=== PATIENT | female | born 1945 | race Hispanic/Latino ===

== ENCOUNTER 2018-04-12 19:06 | Emergency (ER) | payer BC, MEDICARE ==
--- NOTE | 2018-04-12 20:25 | Emergency Department Report ---
ED Extremity Problem HPI - General Chief complaint: Extremity Injury, Lower Stated complaint: RIGHT LEG PAIN Time Seen by Provider: 04/12/18 20:24 Source: patient Mode of arrival: Wheelchair Limitations: Physical Limitation - History of Present Illness Initial comments: Patient accidentally stepped into a shallow hole at the hotel where she is staying earlier this afternoon, injuring right leg and ankle, with pain in the lower leg and ankle area laterally. She scraped the lower aspect of her leg, but there is no protrusion of any bone. She was unable to walk on it afterwards. She has good sensation, and the foot is not cold or numb. She did not strike her head, there was no loss of consciousness, she has no injury elsewhere. Her tetanus is current as of approximately 2 years ago. Past medical history is good general health, with the exception of asthma, and patient is Her, but quit more than 25 years ago. MD Complaint: extremity pain -: Sudden Location: right History of Same: No Severity scale (0 -10): 9 Quality: stabbing, sharp Consistency: constant Improves with: nothing Worsens with: other (movement) Associated Symptoms: denies other symptoms - Related Data Allergies Allergy/AdvReac Type Severity Reaction Status Date / Time adhesive tape Allergy Rash Verified 04/12/18 19:26 ED Review of Systems ROS: Stated complaint: RIGHT LEG PAIN Other details as noted in HPI Comment: All other systems reviewed and negative Constitutional: no symptoms reported Eyes: denies: eye pain, eye discharge, vision change ENT: denies: ear pain, throat pain Respiratory: denies: cough, shortness of breath, wheezing Cardiovascular: denies: chest pain, palpitations Endocrine: no symptoms reported Gastrointestinal: denies: abdominal pain, nausea, diarrhea Musculoskeletal: as per HPI, other (pain in the distal right leg, proximal leg) . denies: back pain, joint swelling, arthralgia Skin: other (contusion distal medial pretibial skin) Neurological: denies: headache, weakness, paresthesias Psychiatric: denies: anxiety, depression Hematological/Lymphatic: denies: easy bleeding, easy bruising ED Past Medical Hx - Past Medical History Previous Medical History?: Yes Hx Hypertension: Yes Hx Asthma: Yes Additional medical history: high cholestrol - Surgical History Past Surgical History?: Yes Hx Cholecystectomy: Yes Hx Appendectomy: Yes Additional Surgical History: right shoulder, left knee, right finger - Social History Smoking Status: Never Smoker Substance Use Type: None ED Physical Exam - General Limitations: Physical Limitation General appearance: in distress (and discomfort from leg injury) - Head Head exam: Present: atraumatic, normocephalic - Eye Eye exam: Present: normal appearance - ENT ENT exam: Present: mucous membranes moist - Neck Neck exam: Present: normal inspection - Respiratory Respiratory exam: Present: normal lung sounds bilaterally. Absent: respiratory distress - Cardiovascular Cardiovascular Exam: Present: regular rate, normal rhythm. Absent: systolic murmur, diastolic murmur, rubs, gallop - GI/Abdominal GI/Abdominal exam: Present: soft, normal bowel sounds - Rectal Rectal exam: Present: deferred - Extremities Exam Extremities exam: Present: tenderness, normal capillary refill, other (edema right lower extremity over the area of maximal tenderness distal third of leg, also moderate tenderness proximal lateral right knee area over proximal fibula) - Expanded Lower Extremity Exam Right Hip exam: Present: normal inspection Upper Leg exam: Present: normal inspection Knee exam: Present: tenderness (lateral right knee) Lower Leg exam: Present: tenderness (distal third right leg), swelling (distal right leg), abrasion (medial aspect distal third of leg on right), ecchymosis ( with contusion medial aspect distal third of right leg). Absent: full ROM, laceration Ankle exam: Absent: tenderness Foot/Toe exam: Present: normal inspection, full ROM (however, limited by pain and right foot). Absent: swelling, abrasion Neuro vascular tendon exam: Present: no vascular compromise. Absent: motor deficit, sensory deficit, tendon deficit, extremity cold to touch, foot drop, peroneal nerve deficit 1 - Moderate edema, medial contusion 3 cm distal third right leg - Back Exam Back exam: Present: normal inspection - Neurological Exam Neurological exam: Present: alert, oriented X3, CN II-XII intact. Absent: motor sensory deficit - Psychiatric Psychiatric exam: Present: normal affect, normal mood ED Course Vital Signs 04/12/18 04/12/18 04/12/18 19:15 19:21 20:29 Temperature 98.0 F 98 F 97.7 F Pulse Rate 76 75 76 Respiratory 18 18 19 Rate Blood Pressure 175/61 175/61 Blood Pressure 176/71 [Right] O2 Sat by Pulse 97 97 98 Oximetry - Reevaluation(s) Reevaluation #1: 04/13/18 00:29 I examined patient and confirmed that she had adequate neurovascular status to right lower extremity after placement of splint, with good movement of toes, good capillary refill, warm toes, normal sensation. She is stable for discharge. ED Medical Decision Making - Radiology Data Radiology results: report reviewed Fracture distal third of right tibia and fibula, moderately displaced, and nondisplaced proximal right fibular fracture. - Medical Decision Making Patient has a 2 bone fracture of the distal tibia and fibula on the right as result of her fall, she also has a nondisplaced fracture of the proximal right fibula, which is neurologically intact, has no signs of peritoneal deficit. Patient is visiting from out of town, was staying in a hotel where accident occurred, and is scheduled to return home to [facility]. She does not have an orthopedist, but she does have a primary care physician, and prefers to receive her care there. She is neurologically stable, will be splinted, instructed in crutch walking, with total nonweightbearing, and to follow-up as early as possible with orthopedist once back home in [place]. Disc copies made of radiographic findings for discharge home with patient. - Differential Diagnosis fracture, contusion, dislocation right leg Critical Care Time: No Critical care attestation.: If time is entered above; I have spent that time in minutes in the direct care of this critically ill patient, excluding procedure time. ED Disposition Clinical Impression: Closed fracture of distal end of right fibula and tibia Qualifiers: Encounter type: initial encounter Qualified Code(s): S82.831A - Other fracture of upper and lower end of right fibula, initial encounter for closed fracture Fracture of proximal end of right fibula Qualifiers: Encounter type: initial encounter Fracture type: closed Fracture morphology: unspecified fracture morphology Qualified Code(s): S82.831A - Other fracture of upper and lower end of right fibula, initial encounter for closed fracture Disposition: DC-01 TO HOME OR SELFCARE Is pt being admited?: No Does the pt Need Aspirin: No Condition: Stable Instructions: Leg Fracture (ED), Crutch Instructions (ED) Additional Instructions: You have broken the bones of your right leg, in 3 places. This is a closed fracture, there is no evidence that the bone protruded, and you are stable for discharge to have your fractures treated at home, by your orthopedist in [place]. We have given you the name of our on-call orthopedist, Dr. Alhaji Michael, in case you have to stay in [facility], and need to receive orthopedic care here. Contact their office first thing in the morning for further care, if he decides to stay in [facility]. We have applied a splint, this is primarily for protection, and to keep the leg from moving. We recommend that she leave it on for the next 2 days, but if he had severe pain, or significant swelling with increased pain, you may remove wrapping, to relieve pressure. Once her feeling better, then rewrap, a little more loosely, but do not attempt to use crutches without the splint in place. At no time should you apply any weight on the leg, which cannot support her weight Elevate her leg as much as possible, as this helps decrease swelling, which was decreased pain from pressure. Have an abrasion and bruise on her right leg, but this is minor and should heal on its own. It only needs observation for secondary signs of infection, but there is no major skin break, and should heal well. There is no sign of nerve damage, but we want to limit movement in order to keep the bone fragments from causing damage to either an artery or nerve. If you have significant swelling, or significant pain at any time, we recommended you have immediate examination stretcher closest medical facility as soon as possible. We have prescribed hydrocodone for pain, brand name of [place], and you may take one tablet every 4-6 hours as needed for pain. Referrals: SHITAL MICHAEL MD [Staff Physician] - 3-5 Days Time of Disposition: 22:25
[2018-04-12 20:30] VITALS: BP 176/71
[2018-04-12] MEDS ORDERED: MORPHINE IM ONE (22:00)
[2018-04-12] MEDS ORDERED: ZOFRAN ODT PO ONE (22:01)
--- NOTE | 2018-04-13 14:31 | XRay Report ---
FINAL REPORT PROCEDURE: XR TIBIA FIBULA 2V RT TECHNIQUE: RIGHT tibia and fibula radiographs, AP and lateral views. CPT 27133 HISTORY: fall with swelling and pain COMPARISON: No prior studies are available for comparison. FINDINGS: Fracture (s) and/or Dislocation(s): There are displaced fractures of the distal tibia and fibula. There is a nondisplaced fracture of the proximal fibula.. Joint space(s): Normal . Soft tissues: There is generalized soft tissue swelling.. Bone mineralization: Normal . Foreign bodies: None . IMPRESSION: Fractures of the tibia and fibula as described..
== END 2018-04-13 00:47 | disposition home or self-care (01) ==
LOC: EDBD → ED 19:06
DX: S82.831A Other fracture of upper and lower end of right fibula, initial encounter for closed fracture (principal); I10 Essential (primary) hypertension; J45.909 Unspecified asthma, uncomplicated; E78.00 Pure hypercholesterolemia, unspecified; Z90.49 Acquired absence of other specified parts of digestive tract; W01.198A Fall on same level from slipping, tripping and stumbling with subsequent striking against other object, initial encounter; Y93.89 Activity, other specified; Y92.89 Other specified places as the place of occurrence of the external cause; Y99.8 Other external cause status
CPT/HCPCS: 29505; 73590; 96372; 99284; J2270; Q0162